=== PATIENT | male | born 1980 | race Caucasian/White ===

== ENCOUNTER → 2018-09-05 | Outpatient (CLI) | payer BC ==
[2018-09-05 19:23] LABS: ANION GAP 9 (5-13); BLOOD UREA NITROGEN 14 mg/dl (7-20); CALCIUM 9.5 mg/dl (8.4-10.2); CARBON DIOXIDE 30 mmol/L (21-31); CHLORIDE 101 mmol/L (97-110); CREATININE 0.71 mg/dl (0.61-1.24); Estimated GFR > 60 mL/min (>60); GLUCOSE 104 mg/dl (70-220); POTASSIUM 4.2 mmol/L (3.5-5.1); SODIUM 140 mmol/L (135-144)
== END | disposition home or self-care (01) ==
LOC: LAB 18:40
DX: R94.39 Abnormal result of other cardiovascular function study (principal); R07.9 Chest pain, unspecified
CPT/HCPCS: 80048

== ENCOUNTER → 2018-09-25 | Outpatient (CLI) | payer BC ==
[2018-09-25] MEDS: METOPROLOL 5 MG INJ (15:00)
[2018-09-25] MEDS: NITROGLYCERIN AEROSOL (4.9 GM) (15:14)
[2018-09-25] MEDS: IOHEXOL 100 ML (15:16)
[2018-09-25] MEDS: SOD CHLORIDE 0.9% 100 ML (15:16)
== END | disposition home or self-care (01) ==
LOC: C/S 14:22
DX: R94.39 Abnormal result of other cardiovascular function study (principal); R07.9 Chest pain, unspecified
CPT/HCPCS: 75574